=== PATIENT | male | born 1960 | race Caucasian/White ===

== ENCOUNTER 2018-02-13 06:41 | Day surgery (SDC) | payer OTHER ==
[~2018-02-13] VITALS: Ht 167.6 cm; Wt 96.8 kg
[~2018-02-13 06:41] MED LIST: INSU100C4 SQ; METF500T4 PO
[2018-02-13] MEDS ORDERED: SODIUM CHLORIDE 0.9% 1,000 ML IV ONE ×2 (06:53→07:00)
[2018-02-13] MEDS ORDERED: PIOG15TA6 PO (07:08)
[2018-02-13] MEDS ORDERED: HYDR25TA PO (07:08)
[2018-02-13] MEDS ORDERED: ASPI81 PO (07:08)
[2018-02-13] MEDS ORDERED: OMEP20 PO (07:08)
[2018-02-13] MEDS ORDERED: AMIT25TA9 PO (07:08)
[2018-02-13] MEDS ORDERED: GABA-533 PO ×2 (07:08)
[2018-02-13] MEDS ORDERED: SITA100 PO (07:08)
[2018-02-13] MEDS ORDERED: LISI-662 PO (07:08)
[2018-02-13] MEDS ORDERED: AMLO-511 PO (07:08)
[2018-02-13] MEDS ORDERED: CLON1 PO (07:08)
[2018-02-13] MEDS ORDERED: INSLAN SQ (07:08)
[2018-02-13] MEDS ORDERED: PERCT PO (07:40)
[2018-02-13 07:50] LABS: EOSINOPHILS % (AUTO) 3.8 % (1.0-6.0); HEMATOCRIT 40.4 % (41-53); HEMOGLOBIN 13.9 g/dL (13.5-17.5); LYMPHOCYTES % (AUTO) 22.1 % (22.0-44.0); MEAN CORPUSCULAR HEMOGLOBIN 29.5 pg (26.0-34.0); MEAN CORPUSCULAR HGB CONC 34.5 G/dL (31.0-37.0); MEAN CORPUSCULAR VOLUME 86 fL (80-100); MONOCYTES # (AUTO) 0.8 K/uL (0.1-1.0); MONOCYTES % (AUTO) 8.5 % (2.0-9.0); NEUTROPHILS # (AUTO) 5.7 K/uL (1.8-7.7); NEUTROPHILS % (AUTO) 64.6 % (40.0-70.0); PLATELET COUNT (AUTO) 221 K/uL (150-450); RED BLOOD CELL COUNT(AUTO) 4.72 MIL/uL (4.50-5.90); RED CELL DISTRIBUTION WIDTH 14.3 % (11.5-14.5)
[2018-02-13 07:59] LABS: INR 0.9 (0.9-1.1); PROTHROMBIN TIME 9.5 SEC (9.4-11.6)
[2018-02-13 08:09] LABS: CREATININE 1.8 mg/dL (0.60-1.30); POTASSIUM 4.5 mmol/L (3.5-5.1)
[2018-02-13] MEDS ORDERED: MIDAZOLAM HCL 2 MG/2 ML VIAL ONE (08:49)
[2018-02-13] MEDS ORDERED: FentaNYL CITRATE-PF 100 MCG/2 ML VIAL ONE (08:50)
[2018-02-13] MEDS ORDERED: LIDOCAINE HCL/PF 1% 30 ML VIAL ONE (08:50)
[2018-02-13] MEDS ORDERED: GELATIN SPONGE,ABSORBABLE 12-7 MM TP ONE (08:50)
[2018-02-13] MEDS ORDERED: FentaNYL CITRATE-PF 100 MCG/2 ML VIAL IVP ONE (09:31)
[2018-02-13] MEDS ORDERED: MIDAZOLAM HCL 2 MG/2 ML VIAL IVP ONE (09:31)
== END 2018-02-13 14:00 | disposition home or self-care (01) ==
LOC: SURGERY 06:41 → EDSTATUS 09:00 → SURGERY 14:00
PROVIDERS: ATTEND Internal Medicine Nephrology
DX: I12.9 Hypertensive chronic kidney disease with stage 1 through stage 4 chronic kidney disease, or unspecified chronic kidney disease (principal); E11.22 Type 2 diabetes mellitus with diabetic chronic kidney disease; N18.9 Chronic kidney disease, unspecified; B19.20 Unspecified viral hepatitis C without hepatic coma; F17.210 Nicotine dependence, cigarettes, uncomplicated; Z90.89 Acquired absence of other organs; Z79.82 Long term (current) use of aspirin; Z79.4 Long term (current) use of insulin; Z98.890 Other specified postprocedural states; Z79.899 Other long term (current) drug therapy
CPT/HCPCS: 36415; 50200; 77012; 80048; 85025; 85610; 85730; 88300; 93005; J2250; J3010; J3490; J7030; 88305; 88313; 88346; 88348